=== PATIENT | male | born 1980 | race Caucasian/White ===

== ENCOUNTER 2019-08-22 12:59 | Outpatient (CLI) | payer MEDICAID, SELFPAY | END 2019-08-22 13:00 | disposition home or self-care (01) | LOC: SLEEP 13:06 | PROVIDERS: Family Provider Family Medicine; Visit Provider Internal Medicine | DX: G47.19 Other hypersomnia (principal) | CPT/HCPCS: 95810 ==

== ENCOUNTER → 2021-01-14 11:19 | Outpatient (BNVA) | payer MEDICAID, SELFPAY | PROVIDERS: Family Provider Family Medicine; PCP Family Medicine; Visit Provider Family Medicine | DX: J45.40 Moderate persistent asthma, uncomplicated (principal); M79.7 Fibromyalgia; R53.82 Chronic fatigue, unspecified; J30.1 Allergic rhinitis due to pollen | CPT/HCPCS: 82607; 82652; 84443; 85025; 85651; 86038; 86140 ==

== ENCOUNTER → 2021-06-02 10:50 | Outpatient (BNVA) | payer MEDICAID, SELFPAY | PROVIDERS: Family Provider Family Medicine; PCP Nurse Practitioner Family; Visit Provider Internal Medicine Rheumatology | DX: M15.9 Polyosteoarthritis, unspecified (principal); M77.8 Other enthesopathies, not elsewhere classified; Z79.899 Other long term (current) drug therapy; M54.89 Other dorsalgia; Z11.59 Encounter for screening for other viral diseases; Z11.1 Encounter for screening for respiratory tuberculosis; Z87.891 Personal history of nicotine dependence | CPT/HCPCS: 99204 ==

== ENCOUNTER 2021-06-05 12:44 | Outpatient (CLI) | payer MEDICAID, SELFPAY ==
--- NOTE | 2021-06-05 13:26 | XR_ITS ---
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 Findings: No fractures or dislocations are seen. The SI joints and pubic symphysis are intact. The soft tissues are not remarkable. XR/XR pelvis 1-2V* 04362 Impression: Negative pelvis.
--- NOTE | 2021-06-05 13:26 | XR_ITS ---
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 Findings: No fractures or dislocations are seen. No bone destruction or erosion is noted. The joint spaces and soft tissues are normal. No periarticular demineralization or calcifications are seen. XR/XR foot RT min 3V* [id number] Impression: Negative right foot.
--- NOTE | 2021-06-05 13:26 | XR_ITS ---
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 Findings: No fractures or dislocations are seen. No bone destruction or erosion is noted. The joint spaces and soft tissues are normal. No periarticular demineralization or calcifications are seen. XR/XR foot LT min 3V* 64000 Impression: Negative left foot.
--- NOTE | 2021-06-05 13:26 | XR_ITS ---
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 Findings: No compression fractures are seen. The disc heights are normal. The para vertebral regions are normal. XR/XR thoracic spine 3V* [id number] Impression: Negative thoracic spine.
--- NOTE | 2021-06-05 13:26 | XR_ITS ---
WS: [email or web address] Right hand, 3 views, 06/05/2021 Clinical Data: Z79.899 - Other [facility] (current[facility] drug therapy Comparison: None. Findings: No fractures or dislocations are seen. The soft tissues are unremarkable. The joint space s are normal No periarticular demineralization or calcifications are seen. XR/XR hand RT min 3V* [id number] Impression: Negative right hand.
--- NOTE | 2021-06-05 13:26 | XR_ITS ---
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 Findings: No fractures or dislocations are seen. The soft tissues are unremarkable. The joint spaces are normal No periarticular demineralization or calcifications are seen. XR/XR hand LT min 3V* [id number] Impression: Negative left hand.
[2021-06-05 13:37] LABS: Basophils # 0.1 10^3/uL (0.0-0.1); Basophils % 1.2 %; Eosinophils # 0.3 10^3/uL (0.0-0.8); Eosinophils % 3.8 %; Hematocrit 43.9 % (42.0-52.0); Hemoglobin 14.5 g/dL (11.7-16.6); Lymphocytes # 2.3 10^3/uL (0.8-4.8); Lymphocytes % 34.7 %; Mean Corpuscular Hemoglobin 30.2 pg (28.0-34.0); Mean Corpuscular Volume 91.5 fl (80-94); Mean Platelet Volume 10.9 fL (7.4-10.4); Monocytes # 0.5 10^3/uL (0.2-0.9); Monocytes % 7.6 %; Neutrophils # 3.45 10^3/uL (1.8-7.7); Neutrophils % 52.4 %; Nucleated Red Blood Cells % 0 %; Platelet Count 276 10^3/cmm (130-400); Red Cell Distribution Width 12.2 % (12.1-15.1); White Blood Count 6.6 10^3/uL (4.0-10.0)
[2021-06-05 14:23] LABS: Alanine Aminotransferase 26 U/L (0-41); Albumin Level 4.2 g/dL (3.5-5.2); Alkaline Phosphatase 75 IU/L (40-130); Aspartate Amino Transferase 14 U/L (0-40); C Reactive Protein 0.4 mg/L (0.0-4.9); Globulin 2.7 g/dL (1.3-4.6); Total Bilirubin 0.3 mg/dL (0.15-1.2); Total Protein 6.9 g/dL (6.6-8.7)
[2021-06-05 14:37] LABS: 25 Hydroxy Vitamin D 19 ng/mL (30-100)
[2021-06-05 14:43] LABS: Hepatitis B Core AB, Total Non-Reactive (Nonreactive); Hepatitis B Surface Antigen Non-Reactive (Nonreactive); Hepatitis C Virus Antibody Non-Reactive (Nonreactive)
[2021-06-06 15:33] LABS: Cyclic Citrullinated Peptide <16 UNITS
[2021-06-06 15:39] LABS: Erythrocyte Sedimentation Rate 2 mm/hr (0-10)
[2021-06-07 10:43] LABS: HLA-B27 NEGATIVE (NEGATIVE)
[2021-06-09 15:56] LABS: Quantiferon Mitogen 8.67 IU/mL; Quantiferon Nil 0.01 IU/mL; Quantiferon Plus TB2 0.01 IU/mL; Quantiferon TB Gold NEGATIVE (NEGATIVE)
== END 2021-06-05 12:45 | disposition home or self-care (01) ==
PROVIDERS: PCP Nurse Practitioner Family; Visit Provider Internal Medicine Rheumatology
DX: M19.90 Unspecified osteoarthritis, unspecified site (principal); M45.6 Ankylosing spondylitis lumbar region; Z79.899 Other long term (current) drug therapy; Z11.59 Encounter for screening for other viral diseases
CPT/HCPCS: 36415; 72072; 72170; 73130; 73630; 80076; 82306; 82565; 85025; 85651; 86140; 86200; 86431; 86480; 86704; 86803; 86812; 87340

== ENCOUNTER 2021-08-01 13:05 | Outpatient (CLI) | payer MEDICAID, SELFPAY ==
[2021-08-01 13:38] LABS: Basophils # 0.1 10^3/uL (0.0-0.1); Basophils % 0.5 %; Eosinophils # 0.1 10^3/uL (0.0-0.8); Eosinophils % 0.6 %; Hematocrit 48.6 % (42.0-52.0); Hemoglobin 15.8 g/dL (11.7-16.6); Lymphocytes # 1.4 10^3/uL (0.8-4.8); Lymphocytes % 12.3 %; Mean Corpuscular HGB Conc 32.5 g/dL (30.0-36.0); Mean Corpuscular Volume 92.2 fl (80-94); Mean Platelet Volume 10.2 fL (7.4-10.4); Monocytes # 0.3 10^3/uL (0.2-0.9); Neutrophils # 9.19 10^3/uL (1.8-7.7); Neutrophils % 82.7 %; Nucleated Red Blood Cells % 0 %; Platelet Count 341 10^3/cmm (130-400); Red Blood Count 5.27 10^6/uL (4.1-5.3); Red Cell Distribution Width 13.5 % (12.1-15.1); White Blood Count 11.1 10^3/uL (4.0-10.0)
[2021-08-01 14:07] LABS: Alanine Aminotransferase 22 U/L (0-41); Albumin Level 4.5 g/dL (3.5-5.2); Alkaline Phosphatase 58 IU/L (40-130); Aspartate Amino Transferase 15 U/L (0-40); C Reactive Protein 1.1 mg/L (0.0-4.9); Globulin 2.6 g/dL (1.3-4.6); Total Bilirubin 0.5 mg/dL (0.15-1.2); Total Protein 7.1 g/dL (6.6-8.7)
== END 2021-08-01 13:06 | disposition home or self-care (01) ==
LOC: LAB 13:11
PROVIDERS: PCP Nurse Practitioner Family; Visit Provider Internal Medicine Rheumatology
DX: M19.90 Unspecified osteoarthritis, unspecified site (principal); Z79.899 Other long term (current) drug therapy
CPT/HCPCS: 80076; 82565; 85025; 86140

== ENCOUNTER → 2021-08-06 10:29 | Outpatient (BNVA) | payer MEDICAID, SELFPAY | PROVIDERS: PCP Nurse Practitioner Family; Visit Provider Internal Medicine Rheumatology | DX: M05.742 Rheumatoid arthritis with rheumatoid factor of left hand without organ or systems involvement (principal); M05.741 Rheumatoid arthritis with rheumatoid factor of right hand without organ or systems involvement; Z71.85 Encounter for immunization safety counseling; M79.7 Fibromyalgia; Z87.891 Personal history of nicotine dependence; Z11.59 Encounter for screening for other viral diseases; Z11.1 Encounter for screening for respiratory tuberculosis; Z79.899 Other long term (current) drug therapy | CPT/HCPCS: 99214 ==

== ENCOUNTER → 2021-12-03 14:02 | Outpatient (BNVA) | payer MEDICAID, SELFPAY | PROVIDERS: PCP Nurse Practitioner Family; Visit Provider Internal Medicine Rheumatology | DX: M19.90 Unspecified osteoarthritis, unspecified site (principal); M54.89 Other dorsalgia; Z79.899 Other long term (current) drug therapy; M06.041 Rheumatoid arthritis without rheumatoid factor, right hand; M06.042 Rheumatoid arthritis without rheumatoid factor, left hand | CPT/HCPCS: 80076; 82565; 85025; 86140 ==

== ENCOUNTER → 2021-12-25 12:53 | Outpatient (BNVA) | payer MEDICAID, SELFPAY | PROVIDERS: PCP Nurse Practitioner Family; Visit Provider Internal Medicine Rheumatology | DX: M06.041 Rheumatoid arthritis without rheumatoid factor, right hand (principal); M06.042 Rheumatoid arthritis without rheumatoid factor, left hand; Z79.899 Other long term (current) drug therapy; M94.0 Chondrocostal junction syndrome [Tietze]; Z95.5 Presence of coronary angioplasty implant and graft | CPT/HCPCS: 99214 ==

== ENCOUNTER → 2022-01-19 14:21 | Outpatient (BNVA) | payer MEDICAID, SELFPAY | PROVIDERS: PCP Family Medicine; Visit Provider Family Medicine | DX: M54.16 Radiculopathy, lumbar region (principal); G89.29 Other chronic pain; M54.50 Low back pain, unspecified | CPT/HCPCS: 72100 ==

== ENCOUNTER 2022-02-03 06:00 | Outpatient (RCR) | payer MEDICAID, SELFPAY | END 2022-02-22 23:59 | disposition home or self-care (01) | LOC: MPT 06:00 | PROVIDERS: PCP Family Medicine; Referring Provider Family Medicine; Visit Provider Family Medicine | DX: M54.16 Radiculopathy, lumbar region (principal); G89.29 Other chronic pain | CPT/HCPCS: 97110; 97140; 97162; G0283 ==

== ENCOUNTER 2022-02-23 06:00 | Outpatient (RCR) | payer MEDICAID, SELFPAY | END 2022-03-25 23:59 | disposition home or self-care (01) | LOC: MPT 06:00 | PROVIDERS: PCP Family Medicine; Referring Provider Family Medicine; Visit Provider Family Medicine | DX: M54.16 Radiculopathy, lumbar region (principal); G89.29 Other chronic pain | CPT/HCPCS: 97110; G0283 ==

== ENCOUNTER 2022-03-26 06:00 | Outpatient (RCR) | payer MEDICAID, SELFPAY | END 2022-04-24 23:59 | disposition home or self-care (01) | LOC: MPT 06:00 | PROVIDERS: PCP Family Medicine; Visit Provider Family Medicine | DX: M54.16 Radiculopathy, lumbar region (principal); G89.29 Other chronic pain | CPT/HCPCS: 97110 ==

== ENCOUNTER → 2022-04-16 13:20 | Outpatient (BNVA) | payer MEDICAID, SELFPAY | PROVIDERS: PCP Family Medicine; Visit Provider Nurse Practitioner Family | DX: R07.9 Chest pain, unspecified (principal); N23 Unspecified renal colic; R80.9 Proteinuria, unspecified | CPT/HCPCS: 81000; 87086 ==

== ENCOUNTER → 2022-04-27 14:01 | Outpatient (BNVA) | payer MEDICAID, SELFPAY | PROVIDERS: PCP Family Medicine; Visit Provider Family Medicine | DX: J30.1 Allergic rhinitis due to pollen (principal); J45.40 Moderate persistent asthma, uncomplicated; I25.118 Atherosclerotic heart disease of native coronary artery with other forms of angina pectoris; M19.90 Unspecified osteoarthritis, unspecified site; Z13.1 Encounter for screening for diabetes mellitus; R73.9 Hyperglycemia, unspecified; M06.041 Rheumatoid arthritis without rheumatoid factor, right hand; M06.042 Rheumatoid arthritis without rheumatoid factor, left hand; Z79.899 Other long term (current) drug therapy; R07.9 Chest pain, unspecified; R80.9 Proteinuria, unspecified; R00.2 Palpitations; I25.10 Atherosclerotic heart disease of native coronary artery without angina pectoris | CPT/HCPCS: 80053; 80061; 83036; 83880; 85025; 86140 ==

== ENCOUNTER 2022-06-16 14:42 | Outpatient (CLI) | payer MEDICAID, SELFPAY ==
--- NOTE | 2022-06-16 14:30 | MR_ITS ---
WS: [email or web address] MRI LUMBAR SPINE NONCONTRAST TECHNIQUE: Sagittal T1, T2 and STIR imaging. Axial T1 and T2 imaging. CLINICAL INFORMATION: M54.50 - COMPARISON: None. FINDINGS: Counting performed from the craniocervical junction. L5 is sacralized. Recommend plain film correlation prior to surgical intervention. Mild lumbar curve. No acute compression. Disc bulging worse at L3-L4 and L4-L5. Small annular fissure L4-L5 eccentric to the LEFT. Endplate Schmorl's node at T11 superior endplate L1-L2: Normal. L2-L3: Mild annular bulging. Tiny LEFT foraminal protrusion. Foramen are patent. Mild facet arthropat hy. L3-L4: Mild annular bulging with slight effacement of ventral thecal sac. Slight impingement traversi ng L4 nerve roots bilaterally. Foramen are patent. Mild facet arthropathy L4-L5: Mild annular bulging. Slight impingement traversing L5 nerve roots bilaterally. Small annular fissure eccentric to the LEFT. Small LEFT foraminal protrusion with contact of the exiting LEFT L4 ne rve root. Mild LEFT foraminal narrowing. RIGHT foramen is patent. Mild facet arthropathy. L5-S1: L5 is sacralized. Rudimentary disc space. Spinal canal and foramen are patent. Visualized pelvic bony structures: Normal. Paravertebral soft tissues: Normal. LEFT peripelvic renal cysts. MR/MR lumbar spine wo con* [id number] IMPRESSION: 1. Mild lumbar curve. No acute compression. 2. Shallow central protrusion L4-L5 with a small annular fissure. Impingement traversing L5 nerve roots bilaterally LEFT greater than RIGHT. Small LEFT khai inal protrusion with mild LEFT foraminal narrowing and slight contact of the ex iting LEFT L4 nerve root. 3. Mild annular bulging L3-L4 impinges the traversing LEFT L4 nerve root in th e subarticular recess. Mild facet arthropathy L3-L4 and L4-L5.
== END 2022-06-16 14:43 | disposition home or self-care (01) ==
LOC: RAD 14:43
PROVIDERS: PCP Family Medicine; Visit Provider Family Medicine
DX: M54.50 Low back pain, unspecified (principal); M51.26 Other intervertebral disc displacement, lumbar region
CPT/HCPCS: 72148

== ENCOUNTER → 2022-11-12 10:39 | Outpatient (BNVA) | payer MEDICAID, SELFPAY | PROVIDERS: PCP Family Medicine; Visit Provider Internal Medicine Rheumatology | DX: M06.041 Rheumatoid arthritis without rheumatoid factor, right hand (principal); M06.042 Rheumatoid arthritis without rheumatoid factor, left hand; Z79.899 Other long term (current) drug therapy; Z71.85 Encounter for immunization safety counseling | CPT/HCPCS: 80076; 82565; 85025; 86140 ==

== ENCOUNTER → 2023-02-11 12:07 | Outpatient (BNVA) | payer MEDICAID, SELFPAY | PROVIDERS: PCP Family Medicine; Visit Provider Internal Medicine Rheumatology | DX: M06.041 Rheumatoid arthritis without rheumatoid factor, right hand (principal); M06.042 Rheumatoid arthritis without rheumatoid factor, left hand; Z79.899 Other long term (current) drug therapy; M25.532 Pain in left wrist; Z71.85 Encounter for immunization safety counseling | CPT/HCPCS: 80076; 82565; 85025; 86140 ==

== ENCOUNTER → 2023-02-12 10:06 | Outpatient (BNVA) | payer MEDICAID, SELFPAY | PROVIDERS: PCP Family Medicine; Visit Provider Internal Medicine Rheumatology | DX: M25.532 Pain in left wrist (principal) | CPT/HCPCS: 73110 ==

== ENCOUNTER → 2023-08-04 14:59 | Outpatient (BNVA) | payer BC, MEDICAID, SELFPAY | PROVIDERS: PCP Family Medicine; Visit Provider Family Medicine | DX: J45.40 Moderate persistent asthma, uncomplicated (principal); A60.02 Herpesviral infection of other male genital organs; M54.16 Radiculopathy, lumbar region; G89.29 Other chronic pain; F41.9 Anxiety disorder, unspecified; I25.118 Atherosclerotic heart disease of native coronary artery with other forms of angina pectoris; M25.521 Pain in right elbow | CPT/HCPCS: 73080 ==

== ENCOUNTER → 2023-09-10 09:45 | Outpatient (BNVA) | payer BC, MEDICAID, SELFPAY | PROVIDERS: PCP Family Medicine; Referring Provider Internal Medicine Rheumatology; Visit Provider Internal Medicine Rheumatology | DX: M06.041 Rheumatoid arthritis without rheumatoid factor, right hand (principal); M06.042 Rheumatoid arthritis without rheumatoid factor, left hand; Z79.899 Other long term (current) drug therapy | CPT/HCPCS: 80076; 82565; 85025; 86140 ==

== ENCOUNTER → 2024-11-03 14:31 | Outpatient (BNVA) | payer BC, SELFPAY | PROVIDERS: PCP Family Medicine; Visit Provider Internal Medicine Rheumatology | DX: M54.9 Dorsalgia, unspecified (principal); Q76.49 Other congenital malformations of spine, not associated with scoliosis; M41.86 Other forms of scoliosis, lumbar region | CPT/HCPCS: 72100 ==

== ENCOUNTER 2025-02-08 12:23 | Outpatient (CLI) | payer BC, SELFPAY ==
[2025-02-08 13:10] LABS: Hematocrit 42.0 % (37-53); Hemoglobin 14.10 g/dL (11.27-16.99); Mean Corpuscular HGB Conc 33.6 g/dL (30-55); Mean Corpuscular Hemoglobin 30.3 pg (27-33); Mean Corpuscular Volume 90.3 fl (82-101); Nucleated Red Blood Cells % 0 %; Platelet Count 230 10^3/cmm (157-399); Red Blood Count 4.65 10^6/uL (3.85-5.65); White Blood Count 6.93 10^3/uL (3.29-11.43)
[2025-02-08 13:37] LABS: Alanine Aminotransferase 18 U/L (0-41); Albumin Level 4.2 g/dL (3.5-5.2); Alkaline Phosphatase 73 U/L (40-130); Aspartate Amino Transferase 17 U/L (0-40); Globulin 2.5 g/dL (1.3-4.6); Total Protein 6.7 g/dL (6.6-8.7)
== END 2025-02-08 12:24 | disposition home or self-care (01) ==
LOC: LAB 12:24
PROVIDERS: PCP Family Medicine; Visit Provider Internal Medicine Rheumatology
DX: Z79.899 Other long term (current) drug therapy (principal)
CPT/HCPCS: 36415; 80076; 82565; 85025; 85651; 86140